=== PATIENT | female | born 1990 | race Two or more races ===

== ENCOUNTER 2025-07-29 15:55 | Emergency (ER) | payer MEDICAID, SELFPAY ==
[2025-07-29 15:55] VITALS: BP 134/88; RESP 76; TEMP 37.3; O2SAT 100; BMI 37.8
--- NOTE | 2025-07-29 16:31 | XR_ITS ---
EXAMINATION: PA chest single view TECHNIQUE: Upright PA chest single view Date and time: July 29, 2025, 1637 hours INDICATIONS: Coughing fever beginning 3 days ago. FINDINGS: Early right perihilar right basilar pneumonia Mild prominence left ventricle No pulmonary edema Mik structures intact IMPRESSION: Early right perihilar right basilar pneumonia
--- NOTE | 2025-07-29 16:32 | PD.EDRME ---
Rapid Medical Screening Exam RME Arrival date/time: 07/29/25 15:55 34-year-old female with no known medical history presents to the emergency room with a chief complaint of cough, congestion, sore throat x 3 days I have greeted and performed a focused initial assessment of this patient. A comprehensive ED assessment and evaluation of the patient, analysis of all test results, and completion of the medical decision making process will be conducted by additional ED providers. Chief Complaint: Headache Time Seen by Provider: 07/29/25 17:30 Vital signs: Vital Signs Temperature 99.2 F 07/29/25 15:55 Respiratory Rate 76 H 07/29/25 15:55 Blood Pressure 134/88 H 07/29/25 15:55 Pulse Oximetry (%) 100 07/29/25 15:55 Oxygen Delivery Method Room Air 07/29/25 15:55 Vital signs reviewed by provider: Yes Exam: Erythemic oropharynx Clear bilateral lung sounds Clinical Impression: Strep/COVID-19/influenza/pneumonia
[2025-07-29 17:28] LABS: Influenza A Ag Positive; Influenza B Ag Negative; Strep A Rapid Negative (Negative)
--- NOTE | 2025-07-29 17:31 | EDNOTE_ITS ---
Upper Respiratory Inf. RME/HPI General Chief Complaint: Headache Stated Complaint: HEADACHE Time Seen by Provider: 07/29/25 17:30 Source: patient Arrival date/time: 07/29/25 15:55 34-year-old female with no known medical history presents to the emergency room with a chief complaint of cough, congestion, sore throat x 3 days Mode of arrival: ambulatory Limitations: no limitations RME / HPI RME / HPI Narrative: 07/29/25 15:55 34-year-old female with no known medical history presents to the emergency room with a chief complaint of cough, congestion, sore throat x 3 days I have greeted and performed a focused initial assessment of this patient. A comprehensive ED assessment and evaluation of the patient, analysis of all test results, and completion of the medical decision making process will be conducted by additional ED providers. Exam: Erythemic oropharynx Clear bilateral lung sounds Impression: Strep/COVID-19/influenza/pneumonia Related Data Allergies Allergy/AdvReac Type Severity Reaction Status Date / Time No Known Allergies Allergy Verified 07/29/25 15:57 Review of Systems Review of Systems Systems Reviewed: All systems reviewed, normal except as documented Constitutional Constitutional: Reports system reviewed and no additional complaints, except as documented, Reports body ache(s), Denies fatigue, Reports fever(s), Denies headache(s) and Reports weakness Eyes Eyes: Reports system reviewed and no additional complaints, except as documented, Denies blurry vision and Denies change in vision ENT Ears, Nose, Mouth, and Throat: Reports system reviewed and no additional complaints, except as documented, Denies otalgia, Denies headache(s), Denies nasal congestion, Denies throat swelling and Denies vertigo Cardiovascular Cardiovascular: Reports system reviewed and no additional complaints, except as documented, Denies chest pain, Reports dyspnea and Denies dyspnea on exertion Respiratory Respiratory: Reports system reviewed and no additional complaints, except as documented, Reports chest congestion, Reports cough, Reports dyspnea, Denies dyspnea on exertion and Denies wheezing Gastrointestinal Gastrointestinal: Reports system reviewed and no additional complaints, except as documented, Denies abdominal pain, Denies cramping, Denies nausea and Denies vomiting Genitourinary Genitourinary: Reports system reviewed and no additional complaints, except as documented Musculoskeletal Musculoskeletal: Reports system reviewed and no additional complaints, except as documented and Denies back pain Integumentary/Breasts Skin/Breast: Reports system reviewed and no additional complaints, except as documented and Denies wounds Neurologic Neurologic: Reports system reviewed and no additional complaints, except as documented, Denies confusion, Denies headache(s), Denies lack of coordination, Denies vertigo and Reports weakness Psychiatric Psychiatric: Reports system reviewed and no additional complaints, except as documented, Denies anxiety, Denies confusion, Denies depression, Denies paranoia, Denies suicidal ideation and Denies tactile hallucinations Endocrine Endocrine: Reports system reviewed and no additional complaints, except as documented and Denies fatigue Hematologic/Lymphatic Hematologic/Lymphatic: Reports system reviewed and no additional complaints, except as documented and Denies lymphadenopathy Allergic/Immunologic Allergic/Immunologic: Reports system reviewed and no additional complaints, except as documented, Denies throat swelling, Denies urticaria and Denies wheezing ED Exam General Limitations: Present no limitations General appearance: Present alert and in no apparent distress Head Head exam: Present atraumatic Eye Eye exam: Present normal appearance, PERRL and EOMI ENT ENT exam: Present normal exam, normal oropharynx and mucous membranes moist Neck Neck exam: Present normal inspection, full ROM and trachea midline Chest Chest inspection: Present normal inspection and symmetric chest wall rise Respiratory Respiratory exam: Present normal lung sounds bilaterally; Absent respiratory distress, wheezes, stridor, accessory muscle use or prolonged expiratory phase Cardiovascular Cardiovascular exam: Present regular rate, normal rhythm, normal heart sounds, +S1 and +S2; Absent tachycardia Abdominal Exam Abdominal exam: Present soft and normal bowel sounds Extremities Exam Extremities exam: Present normal inspection and full ROM Back Exam Back exam: Present normal inspection and full ROM Neurological Exam Neurological exam: Present alert, oriented X3 and CN II-XII intact Psychiatric Psychiatric exam: Present normal affect and normal mood Skin Skin exam: Present warm, dry, intact and normal color Course Quality Measures none Orders Category Date Time Status Bedside COVID-19 Antigen Test NOW Care 07/29/25 16:31 Active XR chest 1V portable Stat Exams 07/29/25 16:31 Taken Influenza A & B Rapid Panel Stat Lab 07/29/25 16:45 Completed Strep A Rapid Stat Lab 07/29/25 16:45 Completed Vital Signs Vital signs: Vital Signs Temperature 99.2 F 07/29/25 15:55 Respiratory Rate 76 H 07/29/25 15:55 Blood Pressure 134/88 H 11/21/25 15:55 Pulse Oximetry (%) 100 07/29/25 15:55 Oxygen Delivery Method Room Air 07/29/25 15:55 Upper Respiratory Infection MDM Narrative MDM Narrative:: 34-year-old female with no known medical history presents to the emergency room with a chief complaint of cough, congestion, sore throat x 3 days Patient is hemodynamically stable and in no apparent distress. Patient is afebrile nontachycardic nontachypneic Physical examination shows clear bilateral lung sounds there is no wheezing or any abnormal breath sounds. Chest x-ray was negative for any pneumonic infiltrates. Patient tested positive for influenza A Patient was discharged and educated to follow-up with primary care provider in the next 24 to 48 hours and return to the emergency room for any evidence of worsening signs or symptoms Patient data External records reviewed:: [facility] previous records Clinical information provided by:: patient Social determinants that could affect healthcare access:: none Patient has the following chronic illnesses:: No chronic illness How is presenting disease/condition affected by chronic disease/condition?: no chronic disease Evaluation data The following diagnostics were reviewed and interpreted by me:: lab results and radiology exam(s) Lab and/or radiology exams considered but not ordered:: Labs and radiology exams considered and ordered Interpretation Summary: Chest x-ray-no pneumonic infiltrates Medications / Prescriptions Medications or Prescriptions considered but not ordered:: No medication given Medication administrations:: No medication given Consultations Consultation(s) initiated? (list below): No Diagnosis Upper Respiratory Differential Diagnosis: upper respiratory infection, viral infection, bronchitis, influenza and other (Community-acquired pneumonia) Most likely diagnosis given after review of the tests above:: Influenza Admission Indicated Admission indicated?: not indicated Admission Request Was there a request for admission?: No Disposition Plan Disposition Plan: Discharge Discharge Attestation Discharge Attestation: The patient and all family members were given an opportunity to ask questions and understood the discharge instructions. Discharge instructions specifically effects, indications for sooner follow up or return to the emergency department, and the expected course of current diagnosis. Patient condition: Stable Discharge Plan Plan Patient Disposition: HOME (Self Care) Discharge Disposition comment: Stable Prescriptions/Referrals Referrals: Jamie Allan MD [Primary Care Provider, Family Practice] - In 1 week Problem List Clinical Impression: Influenza A Patient/Caregiver Discharge Instructions Education Materials: ED Influenza (Adult) Additional Instructions: Please follow-up with your primary care provider in the next 24 to 48 hours. You tested positive for influenza A The treatment for this is symptom management. Please continue to take Tylenol and ibuprofen for fever management. Please increase your oral fluid intake. For any evidence of worsening signs or symptoms please return to the emergency room immediately Print Language: Sinhala Stand Alone Forms: Nayana Award Info., Work/School Release, Patient Portal Info Letter PA/[employer] Supervising Physician PA/[employer] Supervising Physician: Dr. Warren
== END 2025-07-29 17:45 | disposition home or self-care (01) ==
PROVIDERS: Nurse Practitioner Family; Emergency Provider Emergency Medicine; PCP Family Medicine
DX: J10.08 Influenza due to other identified influenza virus with other specified pneumonia (principal)
CPT/HCPCS: 71045; 87502; 87635; 87651; 99282